=== PATIENT | male | born 1975 | race Caucasian/White ===

== ENCOUNTER → 2020-12-14 14:46 | Outpatient (BNVA) | payer OTHER, SELFPAY | PROVIDERS: Visit Provider Emergency Medicine | DX: Z20.822 Contact with and (suspected) exposure to COVID-19 (principal) | CPT/HCPCS: 87635 ==

== ENCOUNTER → 2022-03-12 13:37 | Outpatient (BNVA) | payer OTHER, SELFPAY | PROVIDERS: Visit Provider Nurse Practitioner Family | DX: R05.3 Chronic cough (principal) | CPT/HCPCS: 71046 ==

== ENCOUNTER 2023-03-11 00:11 | Emergency (ER) | payer OTHER, SELFPAY ==
[2023-03-11 00:17] VITALS: BP 156/84; PULSE 76; RESP 18; TEMP 36.7; O2SAT 96; BMI 26.6
[2023-03-11 00:42] VITALS: BP 156/84; PULSE 83; RESP 18; O2SAT 98
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
[2023-03-11 01:03] VITALS: RESP 18; O2SAT 96
[2023-03-11] MEDS: tetanus-dipt-pertussis 0.5 mL SDV IM (01:03)
[2023-03-11] MEDS: oxyCODONE-APAP 5-325 mg Tablet 1 TAB PO (01:03)
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
== END 2023-03-11 01:46 | disposition home or self-care (01) ==
PROVIDERS: Emergency Provider Emergency Medicine; PCP Nurse Practitioner Family
DX: S01.01XA Laceration without foreign body of scalp, initial encounter (principal); S06.0XAA Concussion with loss of consciousness status unknown, initial encounter; S00.83XA Contusion of other part of head, initial encounter; F17.210 Nicotine dependence, cigarettes, uncomplicated; Y00.XXXA Assault by blunt object, initial encounter; Y92.524 Gas station as the place of occurrence of the external cause; Z23 Encounter for immunization
CPT/HCPCS: 12001; 70450; 90715; 99284

== ENCOUNTER → 2025-04-19 14:33 | Outpatient (BNVA) | payer OTHER, SELFPAY | PROVIDERS: PCP Nurse Practitioner Family; Visit Provider Nurse Practitioner | DX: R05.3 Chronic cough (principal) | CPT/HCPCS: 71046 ==